=== PATIENT | female | born 1940 | race Caucasian/White ===

== ENCOUNTER → 2019-02-25 | Outpatient (CLI) | payer OTHER | LOC: RAD 01:51 | DX: Z12.31 Encounter for screening mammogram for malignant neoplasm of breast (principal) ==

== ENCOUNTER → 2021-01-14 | Outpatient (CLI) | payer OTHER | LOC: RAD 09:20 | PROVIDERS: ATTEND Pediatrics | DX: I51.7 Cardiomegaly (principal) ==